=== PATIENT | male | born 1985 | race Caucasian/White ===

== ENCOUNTER 2016-08-15 12:17 | Outpatient (CLI) | payer OTHER | END 2016-08-15 12:18 | LOC: LAB 12:17 | PROVIDERS: ATTEND Family Medicine | DX: R76.8 Other specified abnormal immunological findings in serum (principal) | CPT/HCPCS: 36415; 87517 ==

== ENCOUNTER 2018-02-03 14:29 | Outpatient (CLI) | payer OTHER ==
--- NOTE | 2018-02-03 16:40 | Diagnostic Imaging Report ---
KRYSTEN DELGADO [facility] [id number] [facility] [address] [place], [place]. [address] Report Submission Date: Feb 03, 2018 3:08:48 PM CDT Patient Study Name: ARMAND LUNDBERG Date: Feb 03, 2018 2:32:10 PM CDT Modality Type: DX Gender: M Description: CHEST : 87 Institution: [facility] Physician: KRYSTEN DELGADO PA AND LATERAL CHEST HISTORY: Cough and wheezing COMPARISON: None PA and Lateral Chest dated February 03, 2018 demonstrates a normal cardiomediastinal silhouette. Pulmonary vascularity is normal. Lungs are clear. IMPRESSION: NO ACTIVE DISEASE. Electronically signed on Feb 03, 2018 3:08:48 PM CDT by: Georgia CALZADA
== END 2018-02-03 14:30 ==
LOC: RAD 14:29
PROVIDERS: ATTEND Nurse Practitioner Family
DX: R05 Cough (principal); J45.990 Exercise induced bronchospasm
CPT/HCPCS: 71046